=== PATIENT | male | born 1935 | race Caucasian/White ===

== ENCOUNTER 2017-11-23 18:06 | Inpatient (IN) | payer OTHER ==
[~2017-11-23] VITALS: Ht 154.9 cm; Wt 71.8 kg
[~2017-11-23 18:06] MED LIST: ASPIR-LOW81 MG PO; ASPIRIN325 MG PO; BYSTOLIC10 MG PO; COUMADIN,JANTOVE2 MG PO; COUMADIN2 MG PO; COUMADIN3 MG PO; FISH OIL 1,0001 EAC8 PO; MAG-OXIDE400 MG PO; METOPROLOL SUCC50 MG; SIMVASTATIN 40 MG TA; STOOL SOFTENER1 EAC2 PO; ZESTORETIC 20-1 EAC1 PO; ZOCOR40 MG PO
[2017-11-23 20:39] LABS: PHOSPHORUS 3.4 mg/dL (2.5-4.9)
[2017-11-23 20:41] LABS: BASOPHIL (%) 0.2 % (0-1); EOSINOPHIL (%) 1.9 % (0-5); EOSINOPHIL COUNT 0.2 K/uL (0-0.3); HEMATOCRIT 39.4 % (38.0-50.0); HEMOGLOBIN 13.3 G/DL (12.5-16.6); IMMATURE GRANULOCYTE (%) 0.6 % (0.0-0.7); LYMPHOCYTE (%) 7.9 % (15-42); LYMPHOCYTE COUNT 0.7 K/uL (1.0-2.8); MCH 33.5 PG (29.0-34.0); MCHC 33.8 G/DL (30.0-36.0); MCV 99.2 FL (86-99); MONOCYTE (%) 3.8 % (3-12); MONOCYTE COUNT 0.3 K/uL (0-0.8); NEUTROPHIL (%) 85.6 % (45-76); NEUTROPHIL COUNT 7.3 K/uL (1.8-6.4); PLATELET COUNT 220 K/uL (156-360); RBC DIS.WIDTH-CV 12.8 % (11.8-14.6); RBC DIS.WIDTH-SD 46.2 % (39-53); RED BLOOD COUNT 3.97 M/uL (4.00-5.50); WHITE BLOOD COUNT 8.5 K/uL (4.1-10.2)
[2017-11-23 20:54] LABS: ALBUMIN 3.6 g/dL (3.2-4.8); CHLORIDE 98 mEq/L (99-109); SODIUM 139 mEq/L (136-147)
[2017-11-23 20:57] LABS: GLUCOSE 122 mg/dL (70-99); TOTAL PROTEIN 6.3 g/dL (6.4-8.3)
[2017-11-23 20:58] LABS: TOTAL BILIRUBIN 1.8 mg/dL (0.0-1.0)
[2017-11-23 20:59] LABS: INTER. NORMALIZED RATIO 4.3
[2017-11-23 21:00] LABS: ALKALINE PHOSPHATASE 60 IU/L (3-129); CREATININE 1.9 mg/dL (0.6-1.3); GFR ESTIMATE (CALCULATED) 36 mL/min/ (58.99-99999)
[2017-11-23 21:01] LABS: UREA NITROGEN (BUN) 48 mg/dL (9-23)
[2017-11-23 21:02] LABS: AST (GOT) 98 IU/L (2-34)
[2017-11-23 21:03] LABS: ALT (GPT) 107 IU/L (3-49)
[2017-11-23 21:05] LABS: POTASSIUM 3.9 mEq/L (3.7-5.4)
[2017-11-23 21:11] LABS: MAGNESIUM 1.5 mg/dL (1.3-2.7)
[2017-11-23] MEDS ORDERED: METOPROLOL SUCC50 MG PO (21:30)
[2017-11-23] MEDS ORDERED: VITAMIN D-32000 UNI2 PO (21:30)
[2017-11-23] MEDS ORDERED: MEN'S MULTIVI200 MCG PO (21:30)
[2017-11-23 23:26] LABS: CHLORIDE 101 mEq/L (99-109); POTASSIUM 3.6 mEq/L (3.7-5.4); SODIUM 138 mEq/L (136-147)
[2017-11-23 23:28] LABS: GLUCOSE 109 mg/dL (70-99)
[2017-11-23 23:32] LABS: CREATININE 1.7 mg/dL (0.6-1.3); GFR ESTIMATE (CALCULATED) 41 mL/min/ (58.99-99999); UREA NITROGEN (BUN) 46 mg/dL (9-23)
[2017-11-24 01:18] VITALS: BP 133/74
[2017-11-24 02:55] LABS: APPEARANCE CLEAR ((CLEAR)); BILIRUBIN NEGATIVE; BLOOD SMALL; COLOR STRAW ((YELLOW)); GLUCOSE (STRIP) NEGATIVE; KETONES NEGATIVE; LEUKOCYTES NEGATIVE; NITRITE NEGATIVE; PROTEIN (STRIP) NEGATIVE; SPECIFIC GRAVITY 1.006 (1.000-1.030); UROBILINOGEN 0.2 MG/DL (0.2-1.0)
[2017-11-24 03:01] LABS: BACTERIA NONE SEEN /HPF; EPITHELIAL CELLS RARE /HPF; MUCUS NONE SEEN /LPF; UCUL ADDED? NO; WHITE BLOOD CELLS 0-5 /HPF (0-5)
[2017-11-24 06:37] LABS: HEMATOCRIT 33.2 % (38.0-50.0); MCH 33.3 PG (29.0-34.0); MCHC 33.4 G/DL (30.0-36.0); MCV 99.7 FL (86-99); PLATELET COUNT 169 K/uL (156-360); RBC DIS.WIDTH-CV 12.9 % (11.8-14.6); RBC DIS.WIDTH-SD 47.3 % (39-53); RED BLOOD COUNT 3.33 M/uL (4.00-5.50); WHITE BLOOD COUNT 8.2 K/uL (4.1-10.2)
[2017-11-24 06:43] LABS: HEMOGLOBIN 11.1 G/DL (12.5-16.6)
[2017-11-24 06:45] LABS: INTER. NORMALIZED RATIO 1.9
[2017-11-24 06:49] LABS: ALKALINE PHOSPHATASE 39 IU/L (3-129); ALT (GPT) 73 IU/L (3-49); AST (GOT) 64 IU/L (2-34); CHLORIDE 103 MEQ/L (99-109); CREATININE 1.5 MG/DL (0.6-1.3); DIRECT BILIRUBIN 0.4 mg/dL (0.0-0.3); GFR ESTIMATE (CALCULATED) 48 mL/min/ (58.99-99999); GLUCOSE 122 mg/dL (70-99); POTASSIUM 3.9 MEQ/L (3.7-5.4); SODIUM 140 MEQ/L (136-147); TOTAL BILIRUBIN 1.6 MG/DL (0.0-1.0); TOTAL PROTEIN 4.7 G/DL (6.4-8.3); UREA NITROGEN (BUN) 38 mg/dL (9-23)
[2017-11-24 07:30] VITALS: BP 174/90
[2017-11-24 07:45] LABS: INTACT PARATHYROID HORMONE 7 pg/mL (10-69)
[2017-11-24 09:03] LABS: IMM.RETIC FRACTION 5.9 % (3-19); RETIC HGB EQUIVALENT 37.5 (28-36); RETICULOCYTE COUNT 1.1 % (0.5-1.8)
[2017-11-24 09:15] LABS: IRON 75 MCG/DL (35-150)
[2017-11-24 09:24] LABS: FERRITIN 154 NG/ML (22-322); TRANSFERRIN (TIBC) 163.9 mg/dL (215-380); TRANSFERRIN SATUR. 46 % (20-55)
[2017-11-24 11:33] VITALS: BP 151/69
[2017-11-24 13:19] LABS: FOLIC ACID (FOLATE) > 22.0 NG/ML (5.0-22.0)
[2017-11-24 14:49] LABS: CHLORIDE 100 MEQ/L (99-109); CREATININE 1.3 MG/DL (0.6-1.3); GFR ESTIMATE (CALCULATED) 56 mL/min/ (58.99-99999); GLUCOSE 120 mg/dL (70-99); POTASSIUM 3.8 MEQ/L (3.7-5.4); SODIUM 136 MEQ/L (136-147); UREA NITROGEN (BUN) 32 mg/dL (9-23)
[2017-11-24 16:15] VITALS: BP 124/65
[2017-11-24 19:31] VITALS: BP 126/58
[2017-11-25] VITALS: BP 125/66
[2017-11-25 04:11] VITALS: BP 111/56
[2017-11-25 07:04] LABS: BASOPHIL (%) 0.3 % (0-1); EOSINOPHIL (%) 3.7 % (0-5); EOSINOPHIL COUNT 0.3 K/uL (0-0.3); HEMATOCRIT 29.7 % (38.0-50.0); IMMATURE GRANULOCYTE (%) 0.8 % (0.0-0.7); LYMPHOCYTE (%) 7.2 % (15-42); LYMPHOCYTE COUNT 0.6 K/uL (1.0-2.8); MCH 33.6 PG (29.0-34.0); MCHC 33.7 G/DL (30.0-36.0); MCV 99.7 FL (86-99); MONOCYTE (%) 3.7 % (3-12); MONOCYTE COUNT 0.3 K/uL (0-0.8); NEUTROPHIL (%) 84.3 % (45-76); NEUTROPHIL COUNT 6.4 K/uL (1.8-6.4); PLATELET COUNT 161 K/uL (156-360); RBC DIS.WIDTH-CV 12.9 % (11.8-14.6); RBC DIS.WIDTH-SD 46.9 % (39-53); RED BLOOD COUNT 2.98 M/uL (4.00-5.50); WHITE BLOOD COUNT 7.6 K/uL (4.1-10.2)
[2017-11-25 07:16] LABS: INTER. NORMALIZED RATIO 1.4
[2017-11-25 07:28] LABS: A/G RATIO 1.8 (1.1-1.8); ALBUMIN 2.7 G/DL (3.4-5.0); GLOBULINS 1.5 G/DL (2.3-3.5); TOTAL PROTEIN 4.2 G/DL (6.4-8.2)
[2017-11-25 08:49] LABS: ALBUMIN 2.6 G/DL (3.2-4.8); ALKALINE PHOSPHATASE 37 IU/L (3-129); ALT (GPT) 56 IU/L (3-49); AST (GOT) 47 IU/L (2-34); CHLORIDE 104 MEQ/L (99-109); CREATININE 1.2 MG/DL (0.6-1.3); GFR ESTIMATE (CALCULATED) > 59 mL/min/ (58.99-99999); GLUCOSE 94 mg/dL (70-99); POTASSIUM 3.6 MEQ/L (3.7-5.4); SODIUM 137 MEQ/L (136-147); TOTAL BILIRUBIN 1.4 MG/DL (0.0-1.0); TOTAL PROTEIN 4.5 G/DL (6.4-8.3); UREA NITROGEN (BUN) 31 mg/dL (9-23)
[2017-11-25 09:53] VITALS: BP 127/65
[2017-11-25 11:03] LABS: C DIFF TOXIN NEGATIVE (NEGATIVE)
[2017-11-25 11:55] LABS: CREATINE KINASE 268 IU/L (1-294)
[2017-11-25 12:17] VITALS: BP 136/63
[2017-11-25 15:03] VITALS: BP 136/67
[2017-11-25 15:16] LABS: CHLORIDE 105 MEQ/L (99-109); CREATININE 1.2 MG/DL (0.6-1.3); GFR ESTIMATE (CALCULATED) > 59 mL/min/ (58.99-99999); GLUCOSE 108 mg/dL (70-99); POTASSIUM 4.3 MEQ/L (3.7-5.4); SODIUM 140 MEQ/L (136-147); UREA NITROGEN (BUN) 30 mg/dL (9-23)
[2017-11-25 20:00] VITALS: BP 148/67
[2017-11-26] VITALS: BP 129/64
[2017-11-26 04:00] VITALS: BP 136/67
[2017-11-26 06:23] LABS: BASOPHIL (%) 0.3 % (0-1); EOSINOPHIL (%) 3.9 % (0-5); EOSINOPHIL COUNT 0.3 K/uL (0-0.3); HEMATOCRIT 31.2 % (38.0-50.0); HEMOGLOBIN 10.4 G/DL (12.5-16.6); IMMATURE GRANULOCYTE (%) 0.6 % (0.0-0.7); LYMPHOCYTE (%) 7.5 % (15-42); LYMPHOCYTE COUNT 0.5 K/uL (1.0-2.8); MCH 33.1 PG (29.0-34.0); MCHC 33.3 G/DL (30.0-36.0); MCV 99.4 FL (86-99); MONOCYTE (%) 4.3 % (3-12); MONOCYTE COUNT 0.3 K/uL (0-0.8); NEUTROPHIL (%) 83.4 % (45-76); NEUTROPHIL COUNT 5.8 K/uL (1.8-6.4); PLATELET COUNT 157 K/uL (156-360); RBC DIS.WIDTH-CV 12.9 % (11.8-14.6); RBC DIS.WIDTH-SD 46.8 % (39-53); RED BLOOD COUNT 3.14 M/uL (4.00-5.50)
[2017-11-26 06:25] LABS: INTER. NORMALIZED RATIO 1.4
[2017-11-26 06:47] LABS: ALBUMIN 2.7 G/DL (3.2-4.8); ALKALINE PHOSPHATASE 41 IU/L (3-129); ALT (GPT) 56 IU/L (3-49); AST (GOT) 49 IU/L (2-34); CHLORIDE 107 MEQ/L (99-109); CREATININE 1.1 MG/DL (0.6-1.3); GFR ESTIMATE (CALCULATED) > 59 mL/min/ (58.99-99999); GLUCOSE 90 mg/dL (70-99); POTASSIUM 3.7 MEQ/L (3.7-5.4); SODIUM 140 MEQ/L (136-147); TOTAL BILIRUBIN 1.4 MG/DL (0.0-1.0); TOTAL PROTEIN 4.4 G/DL (6.4-8.3); UREA NITROGEN (BUN) 28 mg/dL (9-23)
[2017-11-26 07:15] VITALS: BP 145/72
[2017-11-26 11:25] LABS: ALBUMIN 2.44 G/DL (3.6-4.9); ALPHA-1 GLOBULIN 0.26 G/DL (0.15-0.40); ALPHA-2 GLOBULIN 0.45 G/DL (0.45-0.85); BETA-GLOBULIN 0.47 G/DL (0.65-1.15); GAMMA-GLOBULIN 0.59 G/DL (0.60-1.35)
== END 2017-11-26 12:18 | disposition home health service (06) | DRG 683 ==
LOC: EME 18:06 → 5SOUTH 22:51 → EDOF 22:51 → ENRESERV 22:52 → 5SOUTH 11-24 01:11 → EDOF 11-24 01:11 → ENPENDDIS 11-26 12:02 → 5SOUTH 11-26 12:18
PROVIDERS: Hospitalist; Physician Assistant Medical
DX: N17.9 Acute kidney failure, unspecified (principal); M62.82 Rhabdomyolysis; E83.52 Hypercalcemia; E86.0 Dehydration; I48.0 Paroxysmal atrial fibrillation; R79.1 Abnormal coagulation profile; I12.9 Hypertensive chronic kidney disease with stage 1 through stage 4 chronic kidney disease, or unspecified chronic kidney disease; N18.3 Chronic kidney disease, stage 3 (moderate); K59.00 Constipation, unspecified; R73.9 Hyperglycemia, unspecified; I25.10 Atherosclerotic heart disease of native coronary artery without angina pectoris; E78.5 Hyperlipidemia, unspecified; R17 Unspecified jaundice; Z79.01 Long term (current) use of anticoagulants; Z82.49 Family history of ischemic heart disease and other diseases of the circulatory system; Z95.1 Presence of aortocoronary bypass graft; M62.81 Muscle weakness (generalized); R11.10 Vomiting, unspecified; R74.0 Nonspecific elevation of levels of transaminase and lactic acid dehydrogenase [LDH]
CPT/HCPCS: 36415; 71046; 71250; 74176; 80048; 80048 91; 80053; 80076; 81003; 82306; 82310; 82436; 82550; 82607; 82652; 82728; 82746; 83519 90; 83540; 83735; 83883 90; 83970; 84100; 84133; 84165; 84300; 84443; 84466; 84550; 85025; 85025 91; 85027; 85046; 85610; 85652; 86140; 87493; 93005; 99281; 99285; J0630; J3475; J7030